=== PATIENT | female | born 1950 | race Caucasian/White ===

== ENCOUNTER 2018-03-07 11:33 | Outpatient (CLI) | payer MEDICARE, OTHER | END 2018-03-07 11:34 | disposition home or self-care (01) | LOC: BICMAMMO 11:33 | PROVIDERS: ATTEND Family Medicine | DX: Z12.31 Encounter for screening mammogram for malignant neoplasm of breast (principal); M80.00XA Age-related osteoporosis with current pathological fracture, unspecified site, initial encounter for fracture; M85.89 Other specified disorders of bone density and structure, multiple sites | CPT/HCPCS: 77063; 77067; 77080 ==

== ENCOUNTER 2019-08-11 07:30 | Outpatient (CLI) | payer MEDICARE, OTHER ==
--- NOTE | 2019-08-11 09:18 | ULT ---
ULTRASOUND ABDOMEN COMPLETE: 08/11/2019 HISTORY: A 69-year-old female with generalized abdominal pain. FINDINGS: The gallbladder has normal wall thickness and has no evidence of gallstones or sludge. The hepatic e chogenicity is normal. The kidneys have normal echogenicity, and there is no hydronephrosis. There is no splenomegaly. There is no abdominal aortic aneurysm. No free fluid is identified. The inferi or vena cava is visualized. The pancreas is visualized, although ultrasound is relatively insensitiv e for pancreatic pathology compared to CT and MRI. There is no biliary dilation. The common duct ca liber is 3 mm. IMPRESSION: Normal. jn [] POS: CET
--- NOTE | 2019-08-11 10:25 | BD ---
BONE DENSITOMETRY USING DEXA: HISTORY: Post menopausal screening for osteoporosis. FINDINGS LUMBAR SPINE BMD (g/cm2) T-SCORE Z-SCORE L1 0.619 -3.4 -1.6 L2 0.581 -4.1 -2.1 L3 0.638 -4.1 -2.0 L4 0.581 -4.4 -2.3 TOTAL 0.605 -4.0 -2.0 BMD (g/cm2) T-SCORE Z-SCORE NECK 0.428 -3.8 -2.1 TOTAL 0.575 -3.0 -1.6 IMPRESSION: Osteoporosis. POS: OFF
== END 2019-08-11 07:31 | disposition home or self-care (01) ==
LOC: ULT 07:30 → BICMAMMO 07:31
PROVIDERS: ATTEND Family Medicine
DX: M81.0 Age-related osteoporosis without current pathological fracture (principal); R10.11 Right upper quadrant pain
CPT/HCPCS: 77080; 93975